=== PATIENT | male | born 1985 | race Two or more races ===

== ENCOUNTER 2023-06-23 13:58 | Emergency (ER) | payer MEDICAID, OTHER ==
[~2023-06-23] VITALS: Ht 170.2 cm; Wt 101.5 kg
[2023-06-23 15:50] VITALS: BP 178/107; PULSE 113; RESP 18; TEMP 97.1; O2SAT 100
[2023-06-23] MEDS ORDERED: ALBUAER3 IN (16:25)
[2023-06-23] MEDS ORDERED: BENZ100C97 PO (16:25)
[2023-06-23] MEDS ORDERED: AZITTAB PO (16:25)
[2023-06-23] MEDS ORDERED: PRED20TA2 PO (16:25)
== END 2023-06-23 16:31 | disposition home or self-care (01) ==
LOC: ER 13:58
DX: J20.9 Acute bronchitis, unspecified (principal); R07.89 Other chest pain; F17.210 Nicotine dependence, cigarettes, uncomplicated; Z79.2 Long term (current) use of antibiotics; Z79.899 Other long term (current) drug therapy
CPT/HCPCS: 71046

== ENCOUNTER 2024-01-06 12:03 | Inpatient (IN) | payer OTHER ==
[~2024-01-06] VITALS: Ht 167.6 cm; Wt 94.7 kg
[~2024-01-06 12:03] MED LIST: ALBUAER3 IN; AZITTAB PO; BENZ100C97 PO; PRED20TA2 PO
[2024-01-06] MEDS: NALOXONE HCL 1MG/ML 2ML SYRINGE IV ONE (12:37)
[2024-01-06] MEDS: NALOXONE HCL 1MG/ML 2ML SYRINGE ONE (12:37)
[2024-01-06 12:39] VITALS: PULSE 125; RESP 7; O2SAT 97
[2024-01-06] MEDS: ETOMIDATE (2MG/ML) 20ML VIAL IV ONE ×2 (12:50→13:03)
[2024-01-06] MEDS: ROCURONIUM 10MG/ML 10ML VIAL IV ONE ×2 (12:50→13:03)
[2024-01-06] MEDS: MIDAZOLAM DRIP 50 mg/50mL 50 ML IV SCH (12:55)
[2024-01-06] MEDS ORDERED: MIDAZOLAM DRIP 50 mg/50mL 50 ML IV SCH (13:00)
[2024-01-06] MEDS: MIDAZOLAM DRIP 50 mg/50mL 50 ML IV ONE ×2 (13:04→13:06)
[2024-01-06 13:23] LABS: Basophils # (auto) 0 10 ^3/uL (0-0.2); Basophils % (auto) 0.2 % (0.0-2.0); Eosinophils # (auto) 0 10 ^3/uL (0-0.8); Hematocrit 49.5 % (41.0-53.0); Hemoglobin 16.7 g/dL (13.5-17.5); Lymphocytes # (auto) 1.7 10 ^3/uL (0.4-5.4); Lymphocytes % (auto) 8.9 % (10.0-50.0); Mean Corpuscular Hemoglobin 29.6 pg (28.0-32.0); Mean Corpuscular Hgb Conc. 33.6 g/dL (32.0-36.0); Monocytes # (auto) 1.3 10 ^3/uL (0-1.3); Monocytes % (auto) 6.6 % (0.0-12.0); Neutrophils # (auto) 16.4 10 ^3/uL (1.6-8.6); Neutrophils % (auto) 84.3 % (37.0-80.0); Nucleated Red Blood Cells % 0.1 %; Red Blood Cells 5.62 10^6/uL (4.5-5.90); Red Cell Distribution Width 13.9 % (11.8-14.3); White Blood Cell 19.4 10^3/uL (4.4-10.8)
[2024-01-06 13:29] LABS: Amphetamine Screen, Urine Pos (NEGATIVE); Barbiturate Scree,Urine Neg (NEGATIVE); Benzodiazephine Screen, Urine Neg (NEGATIVE); Cannabinoid Screen, Urine Neg (NEGATIVE); Cocaine Screen, Urine Neg (NEGATIVE); Opiate Scree,Urine Neg (NEGATIVE); Phencyclidine Screen, Urine Neg (NEGATIVE)
[2024-01-06 13:41] LABS: Acetaminophen < 2.0 UG/ML (10.0-20.0); Alanine Aminotransferase 181 U/L (7-40); Albumin 4.5 g/dL (3.2-4.8); Alkaline Phosphatase 95 U/L (46-116); Anion Gap 7 (5-15); Aspartate Aminotransferase 73 U/L (13-40); BUN/Creatinine Ratio 8.1 (10.0-20.0); Blood Alcohol < 3.0 mg/dL (<10); Blood Urea Nitrogen 8 mg/dL (9-23); Calcium 9.1 mg/dL (8.5-10.1); Carbon Dioxide 24 mmol/L (20-30); Chloride 111 mmol/L (98-107); Glucose 114 mg/dL (74-106); Magnesium 2.6 mg/dL (1.6-2.6); Potassium 3.4 mmol/L (3.5-5.1); Sodium 142 mmol/L (136-145)
[2024-01-06 13:42] LABS: Total Protein 7.2 g/dL (5.7-8.2)
[2024-01-06 13:45] LABS: Salicylate < 3.0 mg/dL (2.8-20.0)
[2024-01-06] MEDS: PROPOFOL 100 ML IV SCH (13:45)
[2024-01-06 13:53] LABS: Lipase 31 U/L (12-53)
[2024-01-06] MEDS: PROPOFOL 100 ML IV ONE (13:55)
[2024-01-06 15:26] LABS: Base Excess -3.1 mmol/L (-2.0-2.0)
[2024-01-06] MEDS: SODIUM CHLORIDE 0.9% 1,000 ML IV SCH (16:45)
[2024-01-06] MEDS ORDERED: NITROGLYCERIN 0.4 MG SL TAB SL PRN (16:45)
[2024-01-06] MEDS ORDERED: ACETAMINOPHEN 325 MG TAB PO PRN (16:45)
[2024-01-06] MEDS ORDERED: ONDANSETRON HCL 4 MG/2 ML VIAL IV PRN (16:45)
[2024-01-06] MEDS ORDERED: MORPHINE SULFATE INJ 2 MG/ml SYRG IV PRN ×2 (16:45)
[2024-01-06] MEDS ORDERED: HYDROcodone-ACET 5/325MG TAB PO PRN (16:45)
[2024-01-06 18:38] VITALS: BP 125/79; PULSE 93; RESP 17; O2SAT 99
[2024-01-06 19:30] VITALS: PULSE 94; RESP 16; O2SAT 99
[2024-01-06 19:37] VITALS: BP 111/75; PULSE 93; RESP 16; O2SAT 98
[2024-01-06 19:59] VITALS: BP 111/75; PULSE 93; RESP 16; O2SAT 99
[2024-01-06 21:46] VITALS: BP 113/73; PULSE 93; RESP 16; O2SAT 98
[2024-01-07] VITALS (36 sets, daily range): BP systolic 111–160; BP diastolic 63–106; PULSE 85–105; RESP 14–22; TEMP 99.7–99.9; O2SAT 98–100
[2024-01-07 05:29] LABS: Basophils # (auto) 0 10 ^3/uL (0-0.2); Basophils % (auto) 0.2 % (0.0-2.0); Eosinophils # (auto) 0.1 10 ^3/uL (0-0.8); Eosinophils % (auto) 0.6 % (0.0-7.0); Hematocrit 48.4 % (41.0-53.0); Hemoglobin 16.1 g/dL (13.5-17.5); Lymphocytes # (auto) 1.4 10 ^3/uL (0.4-5.4); Lymphocytes % (auto) 9.5 % (10.0-50.0); Mean Corpuscular Hemoglobin 29.9 pg (28.0-32.0); Mean Corpuscular Hgb Conc. 33.2 g/dL (32.0-36.0); Mean Corpuscular Volume 89.9 fL (80.0-100.0); Monocytes # (auto) 1.7 10 ^3/uL (0-1.3); Monocytes % (auto) 12.2 % (0.0-12.0); Neutrophils % (auto) 77.5 % (37.0-80.0); Nucleated Red Blood Cells % 0.1 %; Red Blood Cells 5.38 10^6/uL (4.5-5.90); Red Cell Distribution Width 14.4 % (11.8-14.3); White Blood Cell 14.2 10^3/uL (4.4-10.8)
[2024-01-07 05:51] LABS: Alanine Aminotransferase 146 U/L (7-40); Alkaline Phosphatase 83 U/L (46-116); Anion Gap 5 (5-15); Aspartate Aminotransferase 61 U/L (13-40); BUN/Creatinine Ratio 7.9 (10.0-20.0); Bilirubin, Total 0.7 mg/dL (0.2-1.0); Blood Urea Nitrogen 10 mg/dL (9-23); Calcium 8.9 mg/dL (8.5-10.1); Carbon Dioxide 27 mmol/L (20-30); Chloride 111 mmol/L (98-107); Glucose 107 mg/dL (74-106); Potassium 4.2 mmol/L (3.5-5.1); Sodium 143 mmol/L (136-145); Total Protein 6.4 g/dL (5.7-8.2)
[2024-01-07 06:34] LABS: Urine Bacteria None Seen /hpf (None Seen)
[2024-01-07 06:59] LABS: Urine Amorphous Crystal FEW /hpf (None Seen); Urine Blood 2+ /uL (Negative); Urine Clarity Turbid (Clear); Urine Color Light-Yellow (Yellow); Urine Mucus FEW (None Seen); Urine Protein, UAD TRACE (Negative); Urine Specific Gravity 1.016 (1.001-1.035); Urine Urobilinogen Normal (Negative); Urine WBC 2 /hpf (0 - 3); Urine pH 5.5 (5.0-9.0)
[2024-01-07 07:47] LABS: Base Excess -1.6 mmol/L (-2.0-2.0)
[2024-01-07] MEDS: ENOXAPARIN SOD 40 MG/0.4 ML SYRINGE SC SCH (10:00)
[2024-01-07] MEDS: PANTOPRAZOLE 40 MG/10 ML VIAL INJ IV SCH (10:00)
[2024-01-07] MEDS ORDERED: ACETAMINOPHEN 650 mg PER 20.3 mL UD GT PRN (13:45)
[2024-01-07] MEDS: ACETAMINOPHEN 650 mg PER 20.3 mL UD GT PRN (15:24)
[2024-01-07] MEDS: cefTRIAXone 1GM/50ML D5W 50 ML IV ONE (17:32)
[2024-01-07] MEDS: IBUPROFEN 100MG/5ML ORAL SUSP 100 MG/5 ML UD GT PRN (17:32)
[2024-01-07] MEDS: MUPIROCIN 2% OINT 15gm or 22gm FOR MRSA NARES EACHNOSTRI SCH (22:00)
[2024-01-08] VITALS (112 sets, daily range): BP systolic 115–185; BP diastolic 71–119; PULSE 82–106; RESP 15–36; TEMP 97.8–98.8; O2SAT 96–100
[2024-01-08 07:29] LABS: Base Excess 0.4 mmol/L (-2.0-2.0)
[2024-01-08] MEDS: cefTRIAXone 1GM/50ML D5W 50 ML IV SCH (09:00)
[2024-01-08 10:55] LABS: Basophils # (auto) 0 10 ^3/uL (0-0.2); Basophils % (auto) 0.1 % (0.0-2.0); Eosinophils # (auto) 0.1 10 ^3/uL (0-0.8); Eosinophils % (auto) 0.5 % (0.0-7.0); Hematocrit 42.2 % (41.0-53.0); Hemoglobin 14.1 g/dL (13.5-17.5); Lymphocytes # (auto) 1.2 10 ^3/uL (0.4-5.4); Lymphocytes % (auto) 7.9 % (10.0-50.0); Mean Corpuscular Hemoglobin 29.9 pg (28.0-32.0); Mean Corpuscular Hgb Conc. 33.5 g/dL (32.0-36.0); Mean Corpuscular Volume 89.4 fL (80.0-100.0); Monocytes # (auto) 1.6 10 ^3/uL (0-1.3); Monocytes % (auto) 10.2 % (0.0-12.0); Neutrophils # (auto) 12.6 10 ^3/uL (1.6-8.6); Neutrophils % (auto) 81.3 % (37.0-80.0); Red Blood Cells 4.72 10^6/uL (4.5-5.90); Red Cell Distribution Width 14.5 % (11.8-14.3); White Blood Cell 15.5 10^3/uL (4.4-10.8)
[2024-01-08 11:09] LABS: Alanine Aminotransferase 93 U/L (7-40); Albumin 3.4 g/dL (3.2-4.8); Alkaline Phosphatase 90 U/L (46-116); Anion Gap 5 (5-15); Aspartate Aminotransferase 46 U/L (13-40); Bilirubin, Total 0.6 mg/dL (0.2-1.0); Blood Urea Nitrogen 8 mg/dL (9-23); Calcium 8.3 mg/dL (8.5-10.1); Carbon Dioxide 26 mmol/L (20-30); Chloride 112 mmol/L (98-107); Glucose 98 mg/dL (74-106); Potassium 3.6 mmol/L (3.5-5.1); Sodium 143 mmol/L (136-145); Total Protein 5.6 g/dL (5.7-8.2)
[2024-01-08] MEDS: AZITHROMYCIN 500MG/ 250ML 250 ML IV SCH (14:08)
[2024-01-09] VITALS (111 sets, daily range): BP systolic 104–178; BP diastolic 61–113; PULSE 89–126; RESP 15–49; TEMP 98.2–100.4; O2SAT 96–100
[2024-01-09] MEDS: hydrALAZINE HCL 20 MG/ML VL IV PRN (11:08)
[2024-01-09] MEDS: METOPROLOL TARTRATE 1MG/1ML-5ML VIAL IV PRN (12:14)
[2024-01-10] VITALS (100 sets, daily range): BP systolic 75–198; BP diastolic 30–110; PULSE 70–133; RESP 12–53; TEMP 97.8–99.7; O2SAT 93–100
[2024-01-10 04:06] LABS: Basophils # (auto) 0 10 ^3/uL (0-0.2); Basophils % (auto) 0.3 % (0.0-2.0); Eosinophils # (auto) 0.2 10 ^3/uL (0-0.8); Eosinophils % (auto) 1.3 % (0.0-7.0); Hematocrit 39.9 % (41.0-53.0); Hemoglobin 13.1 g/dL (13.5-17.5); Lymphocytes # (auto) 1.7 10 ^3/uL (0.4-5.4); Lymphocytes % (auto) 12.9 % (10.0-50.0); Mean Corpuscular Hemoglobin 29.4 pg (28.0-32.0); Mean Corpuscular Hgb Conc. 32.8 g/dL (32.0-36.0); Mean Corpuscular Volume 89.6 fL (80.0-100.0); Monocytes # (auto) 1.5 10 ^3/uL (0-1.3); Monocytes % (auto) 11.2 % (0.0-12.0); Neutrophils % (auto) 74.3 % (37.0-80.0); Red Blood Cells 4.45 10^6/uL (4.5-5.90); Red Cell Distribution Width 13.8 % (11.8-14.3); White Blood Cell 13.4 10^3/uL (4.4-10.8)
[2024-01-10 04:21] LABS: Alanine Aminotransferase 68 U/L (7-40); Albumin 3.3 g/dL (3.2-4.8); Alkaline Phosphatase 102 U/L (46-116); Anion Gap 9 (5-15); Aspartate Aminotransferase 35 U/L (13-40); BUN/Creatinine Ratio 9.7 (10.0-20.0); Bilirubin, Total 0.8 mg/dL (0.2-1.0); Blood Urea Nitrogen 7 mg/dL (9-23); Calcium 8.9 mg/dL (8.5-10.1); Carbon Dioxide 26 mmol/L (20-30); Chloride 111 mmol/L (98-107); Glucose 106 mg/dL (74-106); Potassium 3.7 mmol/L (3.5-5.1); Sodium 146 mmol/L (136-145); Total Protein 5.6 g/dL (5.7-8.2)
[2024-01-10] MEDS: HALOPERIDOL LACTATE 5 MG/ML INJ VIAL IV PRN (15:06)
[2024-01-11] VITALS (38 sets, daily range): BP systolic 132–178; BP diastolic 80–105; PULSE 98–126; RESP 15–42; TEMP 98.4–99; O2SAT 83–100
== END 2024-01-11 11:20 | DRG 812 ==
LOC: ER 12:03 → EDBD 12:03 → EEVIPCON 16:51 → TELE 16:51 → ICU WEST 01-07 17:50
PROVIDERS: ADMIT Nurse Practitioner; ATTEND Nurse Practitioner
PROC: 5A1945Z Respiratory Ventilation, 24-96 Consecutive Hours (ICD-10-PCS; principal; 2024-01-06)
PROC: 0BH17EZ Insertion of Endotracheal Airway into Trachea, Via Natural or Artificial Opening (ICD-10-PCS; 2024-01-06)
DX: T43.651A Poisoning by methamphetamines accidental (unintentional), initial encounter (principal); J96.01 Acute respiratory failure with hypoxia; G92.8 Other toxic encephalopathy; G93.1 Anoxic brain damage, not elsewhere classified; E87.6 Hypokalemia; F15.10 Other stimulant abuse, uncomplicated; J98.11 Atelectasis; F17.210 Nicotine dependence, cigarettes, uncomplicated; Z79.899 Other long term (current) drug therapy; Z78.1 Physical restraint status; Y92.410 Unspecified street and highway as the place of occurrence of the external cause
CPT/HCPCS: 31500; 36415; 36600; 70450; 71045; 80053; 80307; 80320; 80329; 81001; 82805; 83605; 83690; 83735; 83880; 84484; 85025; 85379; 87040; 87070; 87077; 87081; 87086; 87186; 87205; 92610; 93005; 93306; 94002; 94003; 99291; C9113; G0378; J2704; J7060